=== PATIENT | female | born 1955 | race Caucasian/White ===

== ENCOUNTER 2017-03-28 14:27 | Outpatient (CLI) | payer OTHER ==
--- NOTE | 2017-03-28 17:49 | MRI ---
MRI BRAIN NONCONTRAST: HISTORY: A 61-year-old female with: H53.9, vision changes R25.3, episode of jerking R55 passed out FINDINGS: The ventricles are normal in size and configuration. There is no major intraaxial signal abnormalit y, restricted diffusion, midline shift or any other mass effect, recent intraaxial hemorrhage, or ex traaxial fluid collection. There are high-grade degenerative disk changes and high-grade degenerati ve facet changes, in the visualized portions of the upper cervical spine. IMPRESSION: 1. Normal brain. 2. High-grade cervical spondylosis, incompletely imaged. jn[] POS: [facility]
--- NOTE | 2017-03-28 18:17 | ULT ---
BILATERAL CAROTID DUPLEX ULTRASOUND: 03/28/17 HISTORY: TIA. FINDINGS: No significant plaque formation. No intimal wall thickening is seen on either side. The peak systolic velocity in the right ICA measures 58 cm/s with an end diastolic velocity of 13 cm /s and systolic ratio of 0.67. The peak systolic velocity in the left ICA measures 77 cm/s with an end diastolic velocity of 19 cm/ s and systolic ratio of 0.96. Flow in both vertebral arteries remains antegrade. IMPRESSION: No evidence of hemodynamically significant stenosis. POS: [facility]
== END 2017-03-28 14:28 | disposition home or self-care (01) ==
LOC: SCSULT 14:27
PROVIDERS: ATTEND Family Medicine
DX: H53.9 Unspecified visual disturbance (principal); R25.3 Fasciculation; R55 Syncope and collapse; G45.9 Transient cerebral ischemic attack, unspecified; M47.812 Spondylosis without myelopathy or radiculopathy, cervical region
CPT/HCPCS: 70551; 93880

== ENCOUNTER 2017-03-30 13:53 | Outpatient (CLI) | payer OTHER | END 2017-03-30 13:54 | disposition home or self-care (01) | LOC: EEG 13:53 | PROVIDERS: ATTEND Student in an Organized Health Care Education/Training Program | DX: H53.9 Unspecified visual disturbance (principal); R25.3 Fasciculation; R55 Syncope and collapse | CPT/HCPCS: 95816 ==

== ENCOUNTER 2017-09-17 09:50 | Outpatient (CLI) | payer OTHER ==
--- NOTE | 2017-09-17 15:30 | MMO ---
BILATERAL DIGITAL SCREENING MAMMOGRAMS: Date: 09/17/17 HISTORY: 61-year-old female presents for digital screening mammogram. COMPARISON: 10/08/14, 06/05/13. FINDINGS: This patient's mammogram was interpreted with the assistance of computer-aided detection. Loop recorder overlies the left breast. Scattered areas of fibroglandular density are noted bilaterally. Occasional typically benign calcific ations. No direct or indirect evidence of malignancy. IMPRESSION: BIRADS 2: Benign Finding(s) Continue routine screening. POS: [facility]
== END 2017-09-17 09:51 | disposition home or self-care (01) ==
LOC: SCSMAMMO 09:50
PROVIDERS: ATTEND Family Medicine
DX: Z12.31 Encounter for screening mammogram for malignant neoplasm of breast (principal)
CPT/HCPCS: 77067

== ENCOUNTER 2018-01-02 10:02 | Outpatient (CLI) | payer OTHER ==
--- NOTE | 2018-01-02 12:07 | MRI ---
MRI CERVICAL SPINE WITHOUT CONTRAST: Date: 01/02/18 HISTORY: Cervical spine pain. FINDINGS: The cerebellar tonsils terminate at the level of the foramen magnum. There is no acute fracture of the cervical spine. No adenopathy. There are extensive degenerative changes throughout the cervical spine. Levels are as follows: C2-3: Severe degenerative disc space disease. Mild uncinate process hypertrophy. There is moderate right an d mild left-sided neural foraminal narrowing. Moderate facet arthrosis. Spinal canal measures just un chan 1.0 cm. C3-4: There is large anterior, nearly bridging osteophyte. Large posterior disc osteophyte complex. Moderat e to severe left and moderate right-sided facet arthropathy. There is moderate to severe left-sided n eural foraminal narrowing due to a combination of the uncinate process hypertrophy and the facet arth ropathy. There is abnormal cord signal at this level. Near complete effacement of the ventral CSF spa ce. Spinal canal measures approximately 7.0 mm. C4-5: Moderate to severe degenerative disc space narrowing. There is moderate uncinate process hypertrophy. There is moderate left and moderate right-sided facet arthropathy with hypertrophic changes. Spinal canal measures just under 9.0 mm. Moderate to severe right and moderate left-sided neural foraminal n arrowing. C5-6: There is a large posterior disc osteophyte complex with extension into the subforaminal zones bilater ally. Moderate facet arthrosis with hypertrophic facet changes. There is moderate to severe bilateral neural foraminal narrowing. Spinal canal measures approximately 8.0 mm. C6-7: There is a posterior disc protrusion centrally and bilateral paracentrally. Moderate uncinate process hypertrophy. There is moderate facet arthrosis. Moderate to severe left and right-sided neural regan inal narrowing. The spinal canal is narrowed to approximately 6.0 mm. Complete effacement of the vent ral CSF space. C7-T1: Moderate degenerative disc space height loss. Moderate facet arthrosis. Moderate to severe left and m oderate to severe right-sided facet arthropathy. There is posterior disc osteophyte complex adjacent to the ventral CSF space. Spinal canal measures approximately 7.0 mm. IMPRESSION: Multilevel spinal canal narrowing, as well as multilevel severe neural foraminal narrowing. There is also abnormal cord signal centrally in a transverse orientation at C3-4 concerning for myelomalacia. POS: [facility]
== END 2018-01-02 10:03 | disposition home or self-care (01) ==
LOC: SCSMRI 10:02
PROVIDERS: ATTEND Psychiatry & Neurology Neurology
DX: G43.109 Migraine with aura, not intractable, without status migrainosus (principal); M50.220 Other cervical disc displacement, mid-cervical region, unspecified level; M48.02 Spinal stenosis, cervical region; M99.81 Other biomechanical lesions of cervical region
CPT/HCPCS: 72141

== ENCOUNTER 2018-10-07 09:43 | Outpatient (CLI) | payer OTHER ==
--- NOTE | 2018-10-07 10:45 | MMO ---
Bilateral MAMMO Bilat Screen [facility]. CLINICAL HISTORY: Patient is 62 years old and is seen for screening. VIEWS: The views performed were: bilateral craniocaudal with tomosynthesis and bilateral mediolateral oblique with tomosynthesis. FILMS COMPARED: The present examination has been compared to prior imaging studies performed at [facility] on 06/05/2013, 10/08/2014, 06/21/2016 and 09/17/2017. MAMMOGRAM FINDINGS: There are scattered fibroglandular densities. There are no suspicious masses, suspicious calcifications, or new areas of architectural distortion. IMPRESSION: THERE IS NO MAMMOGRAPHIC EVIDENCE OF MALIGNANCY. A ROUTINE FOLLOW-UP MAMMOGRAM IN 1 YEAR IS RECOMMENDED. THE RESULTS OF THIS EXAM WERE SENT TO THE PATIENT. ACR BI-RADS Category 1 - Negative MAMMOGRAPHY NOTE: 1. A negative mammogram report should not delay a biopsy if a dominant of clinically suspicious mass is present. 2. Approximately 10% to 15% of breast cancers are not detected by mammography. 3. Adenosis and dense breasts may obscure an underlying neoplasm.
--- NOTE | 2018-10-07 11:10 | BD ---
DEXA BONE DENSITY STUDY: Date: 10/07/18 HISTORY: Postmenopausal. FINDINGS: Lumbar Spine: BMD (g/cm2) L1 0.827 T-Score: -1.5 L2 0.906 T-Score: -1.1 L3 1.036 T-Score: -0.4 L4 1.092 T-Score: +0.3 Total 0.971 T-Score: -0.7 Left Femoral Neck: 0.624 T-Score: -2.0 Total Femur: 0.870 T-Score: -0.6 IMPRESSION: 1. Osteopenia of the left femoral neck. 2. Normal bone mineral density of the lumbar spine. 3. 10 year fracture risk for major osteoporotic fracture is 20% and for a hip fracture is 1.6%. Thes e fracture probabilities are calculated for an untreated patient. POS: [facility]
== END 2018-10-07 09:44 | disposition home or self-care (01) ==
LOC: BICMAMMO 09:43
PROVIDERS: ATTEND Family Medicine
DX: Z12.31 Encounter for screening mammogram for malignant neoplasm of breast (principal); M85.852 Other specified disorders of bone density and structure, left thigh; Z78.0 Asymptomatic menopausal state
CPT/HCPCS: 77063; 77067; 77080

== ENCOUNTER 2018-12-24 14:24 | Outpatient (CLI) | payer MEDICARE ==
--- NOTE | 2018-12-24 16:51 | RAD ---
EXAM: LEFT FOOT THREE VIEWS: 12/24/18 HISTORY: M79.672, dorsal foot pain for three weeks without known injury. Arthrosis changes first metatarsophalangeal joint. No evidence for acute fracture or dislocation or s ignificant malalignment. Degenerative enthesophytic changes noted at the Achilles and plantar calcane al insertion regions. No significant soft tissue swelling. IMPRESSION: Degenerative changes and osteoarthrosis changes without acute fracture. If the patient has persistent or unresolving unexplained pain, consider follow-up nonemergent MRI. Findings were discussed with Paddy Obrien at 3:13 p.m. Code BARBER POS: [facility]
== END 2018-12-24 14:25 | disposition home or self-care (01) ==
LOC: SCSRAD 14:24
PROVIDERS: ATTEND Physician Assistant
DX: M79.672 Pain in left foot (principal); M19.072 Primary osteoarthritis, left ankle and foot
CPT/HCPCS: 84550

== ENCOUNTER 2020-04-07 19:00 | Outpatient (CLI) | payer MEDICARE | END 2020-04-07 19:01 | disposition home or self-care (01) | LOC: SLEEPLAB 19:00 | PROVIDERS: ATTEND Family Medicine | DX: G47.33 Obstructive sleep apnea (adult) (pediatric) (principal); R06.83 Snoring; R53.83 Other fatigue; R40.0 Somnolence; R09.89 Other specified symptoms and signs involving the circulatory and respiratory systems; R51.9 Headache, unspecified; R56.9 Unspecified convulsions; G31.84 Mild cognitive impairment of uncertain or unknown etiology; I10 Essential (primary) hypertension; G45.9 Transient cerebral ischemic attack, unspecified | CPT/HCPCS: 95811 ==

== ENCOUNTER 2020-10-05 14:40 | Outpatient (CLI) | payer MEDICARE | END 2020-10-05 14:41 | disposition home or self-care (01) | LOC: SCSRAD 14:40 | PROVIDERS: ATTEND Family Medicine | DX: M54.5 Low back pain (principal); M47.816 Spondylosis without myelopathy or radiculopathy, lumbar region | CPT/HCPCS: 72100 ==